=== PATIENT | male | born 1965 | race Caucasian/White ===

== ENCOUNTER 2019-07-14 14:52 | Observation (INO) | payer OTHER ==
[~2019-07-14] VITALS: Ht 177.8 cm; Wt 72.6 kg
[~2019-07-14 14:52] MED LIST: ALMOTRIPTAN M12.5 MG PO; CIPR500 PO; Norco 10-325 T1 EACH PO; SUMA6I SC; TOPI100 PO
[2019-07-14 15:12] LABS: BASOPHILS ABSOLUTE AUTO 0.04 K/mm3 (0.00-0.23); BASOPHILS PERCENT AUTO 1 % (0-2); EOSINOPHILS PERCENT AUTO 1 % (0-6); Hematocrit 41.6 % (37.0-53.0); Hemoglobin 14.1 g/dL (13.5-17.5); IMMATURE GRAN ABSOLUTE AUTO 0.01 K/mm3 (0.00-0.10); IMMATURE GRAN PERCENT AUTO 0 % (0-1); LYMPHOCYTES ABSOLUTE AUTO 1.66 K/mm3 (0.84-5.20); LYMPHOCYTES PERCENT AUTO 23 % (21-46); MONOCYTES ABSOLUTE AUTO 0.59 K/mm3 (0.16-1.47); MONOCYTES PERCENT AUTO 8 % (4-13); Mean Corpuscular HGB 30.1 pg (26.0-34.0); Mean Corpuscular HGB Conc 33.9 g/dL (31.5-36.5); Mean Corpuscular Volume 89 fL (80-100); Mean Platelet Volume 10.3 fL (9.1-12.4); NEUTROPHILS ABSOLUTE AUTO 4.95 K/mm3 (1.96-9.15); NEUTROPHILS PERCENT AUTO 67 % (41-73); Platelet Count 246 K/mm3 (150-400); RDW Coefficient Variation 12.4 % (11.7-14.2); RDW Standard Deviation 40.3 fL (35.1-46.3); Red Blood Cell Count 4.68 M/mm3 (4.30-5.90); White Blood Cell Count 7.35 K/mm3 (4.00-11.30)
[2019-07-14 15:34] LABS: Alanine Aminotransfer (ALT/SGP 36 U/L (12-78); Albumin/Globulin Ratio 1.4 (0.8-1.8); Alk Phos 81 U/L (50-136); Anion Gap 7 mmol/L (6-16); Aspartate Aminotrans (AST/SGOT 33 U/L (12-37); Bilirubin, Total 0.5 mg/dL (0.1-1.0); Blood Urea Nitrogen 21 mg/dL (8-24); Bun/Creatinine Ratio 17.4 (12.0-20.0); CO2, Blood 27 mmol/L (21-32); Calcium, Blood 8.9 mg/dL (8.5-10.1); Chloride, Blood 105 mmol/L (98-108); Creatinine, Blood 1.21 mg/dL (0.60-1.20); Globulin, Blood 2.9 g/dL (2.2-4.0); Glomerular Filtration Rate >60 (60-); Glucose, Blood 141 mg/dL (70-99); Potassium, Blood 3.7 mmol/L (3.5-5.5); Sodium, Blood 139 mmol/L (136-145); Total Protein, Blood 6.9 g/dL (6.4-8.2)
[2019-07-14] MEDS ORDERED: CAND16 PO (15:35)
[2019-07-14] MEDS ORDERED: AJOVY225 MG/1.5 SC (15:35)
[2019-07-14] MEDS ORDERED: Zanaflex4 MG PO (16:07)
[2019-07-15 04:42] LABS: Source, Urine Clean Catch
[2019-07-15 04:49] LABS: Bilirubin, Urine Neg (Neg); Blood, Urine Neg (Neg); Glucose Qualitative, Urine Neg (Neg); Ketones, Urine Neg (Neg); Leukocyte Esterase, Urine Neg (Neg); Nitrite, Urine Neg (Neg); Protein, Urine Neg (Neg); Urobilinogen, Urine NORM (Normal)
[2019-07-15 04:52] LABS: Appearance, Urine Clear (Clear); Color, Urine Yellow (P-Yellow)
[2019-07-15 04:55] LABS: BASOPHILS ABSOLUTE AUTO 0.06 K/mm3 (0.00-0.23); BASOPHILS PERCENT AUTO 1 % (0-2); EOSINOPHILS ABSOLUTE AUTO 0.21 K/mm3 (0.00-0.68); EOSINOPHILS PERCENT AUTO 3 % (0-6); Hematocrit 41.8 % (37.0-53.0); IMMATURE GRAN ABSOLUTE AUTO 0.03 K/mm3 (0.00-0.10); IMMATURE GRAN PERCENT AUTO 1 % (0-1); LYMPHOCYTES ABSOLUTE AUTO 1.96 K/mm3 (0.84-5.20); LYMPHOCYTES PERCENT AUTO 32 % (21-46); MONOCYTES PERCENT AUTO 11 % (4-13); Mean Corpuscular HGB Conc 33.5 g/dL (31.5-36.5); Mean Platelet Volume 10.4 fL (9.1-12.4); NEUTROPHILS PERCENT AUTO 52 % (41-73); Platelet Count 238 K/mm3 (150-400); RDW Coefficient Variation 12.5 % (11.7-14.2); RDW Standard Deviation 42.5 fL (35.1-46.3); Red Blood Cell Count 4.52 M/mm3 (4.30-5.90); White Blood Cell Count 6.16 K/mm3 (4.00-11.30)
[2019-07-15 04:58] LABS: Mean Corpuscular Volume 93 fL (80-100)
--- NOTE | 2019-07-15 05:11 | NUR ---
Patient A/O x4. VSS. Independent in room. Ambulating to bathroom. Voiding freely. Complaints of generalized pain; medicated per orders. . No complaints of chestpain or SOB. On telemetry monitoring; Sinus Michi. Urine sample sent to lab. Tolerating PO fluids. Saline locked.
[2019-07-15 05:14] LABS: Alanine Aminotransfer (ALT/SGP 35 U/L (12-78); Albumin, Blood 3.6 g/dL (3.4-5.0); Albumin/Globulin Ratio 1.3 (0.8-1.8); Alk Phos 71 U/L (50-136); Anion Gap 6 mmol/L (6-16); Aspartate Aminotrans (AST/SGOT 28 U/L (12-37); Bilirubin, Total 0.3 mg/dL (0.1-1.0); Blood Urea Nitrogen 20 mg/dL (8-24); Bun/Creatinine Ratio 16.9 (12.0-20.0); CO2, Blood 27 mmol/L (21-32); Calcium, Blood 8.3 mg/dL (8.5-10.1); Chloride, Blood 106 mmol/L (98-108); Creatinine, Blood 1.18 mg/dL (0.60-1.20); Globulin, Blood 2.8 g/dL (2.2-4.0); Glomerular Filtration Rate >60 (60-); Glucose, Blood 95 mg/dL (70-99); Potassium, Blood 3.7 mmol/L (3.5-5.5); Sodium, Blood 139 mmol/L (136-145); Total Protein, Blood 6.4 g/dL (6.4-8.2)
--- NOTE | 2019-07-15 05:51 | NUR ---
Patient down to radiology for Chest xray at this time
[2019-07-15] MEDS ORDERED: OXYC10TA19 PO (11:05)
--- NOTE | 2019-07-15 11:55 | NUR ---
PATIENT D/C'D HOME WITH AT THIS TIME; BOTH STATE UNDERSTANDING OF MEDS, ACTIVITY, F/U APPT, RISK FACTORS. PATIENT STATES PAIN WELL CONTROLLED WITH PO PAIN MED. TOLERATING PO. VOIDING. NO ACUTE CHANGES OR C/O.
== END 2019-07-15 11:55 | disposition home or self-care (01) ==
LOC: ER 14:52 → SURS 14:53
PROVIDERS: Emergency Medicine; ADMIT Family Medicine
DX: S40.022A Contusion of left upper arm, initial encounter (principal); S39.81XA Other specified injuries of abdomen, initial encounter; M47.896 Other spondylosis, lumbar region; G43.909 Migraine, unspecified, not intractable, without status migrainosus; F17.220 Nicotine dependence, chewing tobacco, uncomplicated; N17.9 Acute kidney failure, unspecified; Z79.899 Other long term (current) drug therapy; V43.52XA Car driver injured in collision with other type car in traffic accident, initial encounter
CPT/HCPCS: 36415; 70450; 71046; 71260; 72125; 73080; 73562-LT; 74177; 80053; 81003; 85025; 86850; 86900; 86901; 96374-59; 96375; 97161; 97530; 99285-25; J1170; J2405; Q9967

== ENCOUNTER 2022-08-01 09:08 | Observation (INO) | payer OTHER ==
[~2022-08-01] VITALS: Ht 180.3 cm; Wt 95.2 kg
[~2022-08-01 09:08] MED LIST changes: +AJOVY225 MG/1.5 SC; +AMOCLA875 PO; +CAND16 PO; +OXYC10TA19 PO; +Zanaflex4 MG PO
[2022-08-01] MEDS ORDERED: CANDESARTAN CIL16 MG PO (11:22)
[2022-08-01] MEDS ORDERED: Hydrocodone-Acetamin PO (11:23)
[2022-08-01] MEDS ORDERED: Effexor Xr37.5 MG PO (11:25)
[2022-08-01 11:53] LABS: PCO2 Arterial 44.2 mmHg (35-45); PO2 Arterial 58.3 mmHg (80-100); pH Blood Arterial 7.38 (7.35-7.45)
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
--- NOTE | 2022-08-02 04:03 | NUR ---
SHIFT SUMMARY; PT WITH NO ACUTE MEDICAL CHANGES OVERNIGHT. PTS MORTON DID DEVELOP SOME WATER FILLED BLISTERS. PT COMPLAINS OF PAIN IN RELATION TO THOSE MORTON BUT IS ABLE TO CONTROL THE PAIN WITH NORCO. PT DENIES ANY SOB, NO CHANGES SEEN IN THE PTS THROAT THROUGHOUT THE SHIFT, NO RESPIRATORY EFFORT CHANGES PER PT REPORT. PT DID BRITNEY DOWN TO LOW 52BPM WHILE SLEEPING. PT CURRENLY RESTING IN BED WITH THE BED IN THE LOWEST POSITION AND THE CALL LIGHT IN HIS LAP. PT RECIEVED A DRESSING CHANGE YESTERDAY 08/01/22 AT APPROXIMATELY 1700 PER DAYSHIFT RN AND PT REPORT, THE DRESSING REMAINS INTACT. DRESSING CHANGES QDAILY, NEXT DRESSING CHANGE SCHEDULED FOR TODAY 08/02/22, TO BE DONE BY DAYSHIFT RN.
[2022-08-02 05:19] LABS: BASOPHILS ABSOLUTE AUTO 0.04 K/mm3 (0.00-0.23); BASOPHILS PERCENT AUTO 1 % (0-2); EOSINOPHILS ABSOLUTE AUTO 0.22 K/mm3 (0.00-0.68); EOSINOPHILS PERCENT AUTO 3 % (0-6); Hematocrit 37.2 % (37.0-53.0); Hemoglobin 12.6 g/dL (13.5-17.5); IMMATURE GRAN ABSOLUTE AUTO 0.02 K/mm3 (0.00-0.10); IMMATURE GRAN PERCENT AUTO 0 % (0-1); LYMPHOCYTES ABSOLUTE AUTO 1.54 K/mm3 (0.84-5.20); LYMPHOCYTES PERCENT AUTO 17 % (21-46); MONOCYTES ABSOLUTE AUTO 0.77 K/mm3 (0.16-1.47); MONOCYTES PERCENT AUTO 9 % (4-13); Mean Corpuscular HGB 30.9 pg (26.0-34.0); Mean Corpuscular HGB Conc 33.9 g/dL (31.5-36.5); Mean Corpuscular Volume 91 fL (80-100); Mean Platelet Volume 10.1 fL (9.1-12.4); NEUTROPHILS ABSOLUTE AUTO 6.28 K/mm3 (1.96-9.15); NEUTROPHILS PERCENT AUTO 71 % (41-73); Platelet Count 206 K/mm3 (150-400); RDW Coefficient Variation 12.9 % (11.7-14.2); RDW Standard Deviation 43.3 fL (35.1-46.3); Red Blood Cell Count 4.08 M/mm3 (4.30-5.90); White Blood Cell Count 8.87 K/mm3 (4.00-11.30)
[2022-08-02 05:45] LABS: Albumin, Blood 3.1 g/dL (3.4-5.0); Albumin/Globulin Ratio 1.2 (0.8-1.8); Bilirubin, Total 0.6 mg/dL (0.1-1.0); Calcium, Blood 8.1 mg/dL (8.5-10.1); Creatinine, Blood 1.13 mg/dL (0.60-1.20); Globulin, Blood 2.5 g/dL (2.2-4.0); Total Protein, Blood 5.6 g/dL (6.4-8.2)
[2022-08-02] MEDS ORDERED: MORP15ER (11:00)
[2022-08-02] MEDS ORDERED: MUPIROCIN15 GM TP (11:00)
--- NOTE | 2022-08-02 11:54 | NUR ---
Patient doing well, no overnight events. Sats stable on room air, lungs clear t/o. MD assessed patient and ordered discharge home. Surgeon, Dr. Mccarthy stated it was okay for patient to discharge. Continue wound care & f/u in [address] Mccarthy. Skin open/red, clear exudate weeping from wounds & blisters. Patient reports moderate pain. Provided education to pt/ on wound care, verbalzied understanding. Patient left medical unit at 1130.
== END 2022-08-02 11:40 | disposition home or self-care (01) ==
LOC: ER 09:08 → MEDS 09:09
PROVIDERS: ADMIT Internal Medicine
DX: T20.20XA Burn of second degree of head, face, and neck, unspecified site, initial encounter (principal); T21.21XA Burn of second degree of chest wall, initial encounter; T20.27XA Burn of second degree of neck, initial encounter; T20.019 Burn of unspecified degree of unspecified ear [any part, except ear drum]; T31.0 Burns involving less than 10% of body surface; G43.009 Migraine without aura, not intractable, without status migrainosus; M51.36 Other intervertebral disc degeneration, lumbar region; G89.4 Chronic pain syndrome; X08.8XXA Exposure to other specified smoke, fire and flames, initial encounter; Z98.1 Arthrodesis status
CPT/HCPCS: 36415; 36600; 71046; 80053; 82803; 85025; 94762; A9270; J1170; J1650; J1885; J2405; J7120